=== PATIENT | male | born 1960 | race Caucasian/White ===

== ENCOUNTER → 2020-04-14 | Outpatient (CLI) | payer OTHER ==
--- NOTE | 2020-04-15 08:50 | CT ---
Procedure: CT LUNG SCREENING Exam Date: 04/14/2020. Ordering Provider: Brody Thibodeaux Clinical Indication: LUNG SCREENING current cigarette smoker. 40 pack years. This patient meets eligibility criteria for low-dose CT lung cancer screening. Comparison: Low-dose CT lung cancer screening examination March 2019. Technique: Using a multislice scanner, sequential helical axial imaging was obtained in the thorax, 2.5 mm thickness, 2.5 mm separation, from the level of the thoracic inlet through the lung bases without IV contrast. A low dose protocol was utilized for BMI less than 30: BMI: 21.8. CTDI: 1.76 mGy. 120. kVp. 45 mA. DLP 72 mGy-cm. 2D sagittal and coronal reconstructed images, 6.0 mm thickness, were obtained. This exam was performed according to our departmental dose optimization program which includes use of automated exposure control, adjustment of the mA and/or kV according to patient size and/or use of iterative reconstruction technique. Nodule measurements under 10 mm are given as mean value of 3 axes diameters. FINDINGS: Lungs and large airways: Bilateral perihilar peribronchial wall thickening is minimal. Bilateral small uniform parenchymal blebs. More prevalent upper lung cagle. Pleural parenchymal scarring left lower lobe and inferior lingula. No abnormal nodules and no mass. No focal infiltrates.. Pleura and space: Bilateral apical pleural thickening stable. Focal thickening decreased abutting the lower lung cagle. Mediastinum and amari: evaluation limited by low dose technique and lack of IV contrast. Small lymph nodes. No dominant soft tissue mass. Heart and great vessels: Minimal coronary artery calcification and minimal atherosclerotic calcification in the thoracic aorta. Chest wall, lower neck, axillae: Evaluation also limited by same factors as described above. Normal size axillary nodes. Stable. Upper abdomen: Evaluation limited by low-dose technique. Minimal dilation upper left renal collecting system. Spleen and adrenal glands are negative. No free air or free fluid in the included peritoneal space. Osseous structures: Evaluation limited by low dose MIP technique. No acute osseous abnormalities. Stable since the prior study. IMPRESSION: Minimal emphysematous changes along with perihilar peribronchial wall thickening. No abnormal nodule or mass. No focal infiltrate. Stable pleural thickening without effusion.. [facility] Best Practice Recommendations: please see below for Lung RADS category and FOLLOW-UP.* *Lung RADS category Category 1 - No nodule or definitely benign nodules (probability of malignancy less than 1%). Follow-up: Continue annual screening with Low Dose Chest CT in 12 months. Electronically signed by: Vamsi Merida MD 04/15/2020 8:49 AM CDT
== END ==
LOC: CT 10:00
PROVIDERS: ATTEND Family Medicine
DX: Z87.891 Personal history of nicotine dependence (principal); J43.9 Emphysema, unspecified; R91.8 Other nonspecific abnormal finding of lung field